=== PATIENT | male | born 1965 | race Caucasian/White ===

== ENCOUNTER 2017-11-21 22:23 | Inpatient (IN) | payer OTHER ==
[~2017-11-21] VITALS: Ht 172.7 cm; Wt 89.1 kg
[2017-11-21 23:57] LABS: BASOPHIL (%) 0.3 % (0-1); BASOPHIL COUNT 0.1 K/uL (0-0.1); EOSINOPHIL (%) 0.2 % (0-5); HEMATOCRIT 42.2 % (38.0-50.0); HEMOGLOBIN 14.3 G/DL (12.5-16.6); IMMATURE GRANULOCYTE (%) 1.6 % (0.0-0.7); LYMPHOCYTE (%) 3.1 % (15-42); LYMPHOCYTE COUNT 0.6 K/uL (1.0-2.8); MCH 30.1 PG (29.0-34.0); MCHC 33.9 G/DL (30.0-36.0); MCV 88.8 FL (86-99); MONOCYTE (%) 5.3 % (3-12); NEUTROPHIL (%) 89.5 % (45-76); NEUTROPHIL COUNT 17.2 K/uL (1.8-6.4); PLATELET COUNT 294 K/uL (156-360); RBC DIS.WIDTH-CV 13.1 % (11.8-14.6); RED BLOOD COUNT 4.75 M/uL (4.00-5.50); WHITE BLOOD COUNT 19.2 K/uL (4.1-10.2)
[2017-11-22 00:12] LABS: ERTH.SED.RATE 102 MM/HR (0-15)
[2017-11-22 00:13] LABS: ALBUMIN 3.4 g/dL (3.2-4.8); CHLORIDE 98 mEq/L (99-109); POTASSIUM 4.6 mEq/L (3.7-5.4); SODIUM 129 mEq/L (136-147)
[2017-11-22 00:15] LABS: GLUCOSE 358 mg/dL (70-99)
[2017-11-22 00:16] LABS: TOTAL PROTEIN 7.3 g/dL (6.4-8.3)
[2017-11-22 00:17] LABS: TOTAL BILIRUBIN 0.4 mg/dL (0.0-1.0)
[2017-11-22 00:19] LABS: ALKALINE PHOSPHATASE 126 IU/L (3-129); CREATININE 0.8 mg/dL (0.6-1.3); GFR ESTIMATE (CALCULATED) > 59 mL/min/ (58.99-99999)
[2017-11-22 00:20] LABS: UREA NITROGEN (BUN) 22 mg/dL (9-23)
[2017-11-22 00:21] LABS: AST (GOT) 15 IU/L (2-34)
[2017-11-22 00:22] LABS: ALT (GPT) 18 IU/L (3-49)
[2017-11-22 00:53] LABS: INTER. NORMALIZED RATIO 1.2
[2017-11-22 00:55] LABS: PTT 24.3 SEC (25-37)
[2017-11-22] MEDS ORDERED: PREDNISONE10 M1 PO (01:08)
[2017-11-22] MEDS ORDERED: GLUCOPHAGE500 MG PO (01:08)
[2017-11-22] MEDS ORDERED: PERCOCET 5/31 TABLET PO (01:08)
[2017-11-22 01:43] LABS: HIGH-SENS C-REACTIVE PROTEIN > 8.00 MG/DL (0.02-0.20)
[2017-11-22 02:19] LABS: APPEARANCE CLEAR ((CLEAR)); BILIRUBIN NEGATIVE; BLOOD NEGATIVE; COLOR YELLOW ((YELLOW)); GLUCOSE (STRIP) >=500; KETONES 80; LEUKOCYTES NEGATIVE; NITRITE NEGATIVE; PROTEIN (STRIP) NEGATIVE; UCUL ADDED? NO; UROBILINOGEN 0.2 MG/DL (0.2-1.0)
[2017-11-22 02:28] LABS: AMPHETAMINE NEGATIVE (500 ng/mL); BENZODIAZEPINES PRESUMPTIVE POSITIVE (150 ng/mL); COCAINE NEGATIVE (150 ng/mL); METHAMPHETAMINE NEGATIVE (500 ng/mL); OPIATES (MORPHINE) NEGATIVE (100 ng/mL); PHENCYCLIDINE NEGATIVE (25 ng/mL); THC CANNABINOIDS NEGATIVE (50 ng/mL); TRICYCLIC ANTIDEPRESSANTS NEGATIVE (300 ng/mL)
[2017-11-22 02:29] LABS: BARBITURATES NEGATIVE (200 ng/mL); BUPRENORPHINE NEGATIVE (10 ng/mL); METHADONE NEGATIVE (200 ng/mL); OXYCODONE PRESUMPTIVE POSITIVE (100 ng/mL); PROPOXYPHENE NEGATIVE (300 ng/mL)
[2017-11-22 03:10] LABS: BENZODIAZEPINES, URINE SCREEN Negative (200 ng/mL)
[2017-11-22 07:34] VITALS: BP 162/92
[2017-11-22 13:32] VITALS: BP 184/97
[2017-11-22 13:44] VITALS: BP 184/97
[2017-11-22 20:05] VITALS: BP 168/92
[2017-11-22 23:56] VITALS: BP 172/82
[2017-11-23 03:24] VITALS: BP 163/87
[2017-11-23 07:43] VITALS: BP 158/97
[2017-11-23 11:21] VITALS: BP 166/95
[2017-11-23 16:23] VITALS: BP 148/93
[2017-11-23 20:15] VITALS: BP 136/87
[2017-11-23 23:58] VITALS: BP 157/101
[2017-11-24 00:03] VITALS: BP 135/63
[2017-11-24 07:45] VITALS: BP 165/89
[2017-11-24 15:55] VITALS: BP 154/84
[2017-11-24 21:00] LABS: CHLORIDE 100 MEQ/L (99-109); POTASSIUM 4.3 MEQ/L (3.7-5.4); SODIUM 130 MEQ/L (136-147)
[2017-11-24 21:07] LABS: CREATININE 0.7 MG/DL (0.6-1.3); GFR ESTIMATE (CALCULATED) > 59 mL/min/ (58.99-99999); GLUCOSE 303 mg/dL (70-99); UREA NITROGEN (BUN) 18 mg/dL (9-23)
[2017-11-24 23:37] VITALS: BP 170/99
[2017-11-25 05:04] LABS: CHLORIDE 102 mEq/L (99-109); POTASSIUM 4.3 mEq/L (3.7-5.4); SODIUM 131 mEq/L (136-147)
[2017-11-25 05:06] LABS: GLUCOSE 223 mg/dL (70-99)
[2017-11-25 05:10] LABS: CREATININE 0.6 mg/dL (0.6-1.3); GFR ESTIMATE (CALCULATED) > 59 mL/min/ (58.99-99999)
[2017-11-25 05:11] LABS: UREA NITROGEN (BUN) 16 mg/dL (9-23)
[2017-11-25 07:52] VITALS: BP 160/93
[2017-11-25 08:13] LABS: THYROTROPIN (TSH) 2.4 MIU/L (0.4-5.5)
[2017-11-25 09:56] LABS: HEMOGLOBIN A1c (GLYCOHEMOGLOB) 13.4 % (Below 5.7)
[2017-11-25 16:11] VITALS: BP 150/96
[2017-11-25 20:59] VITALS: BP 156/84
[2017-11-25 23:46] VITALS: BP 153/96
[2017-11-26 04:24] VITALS: BP 134/87
[2017-11-26 07:57] VITALS: BP 137/97
[2017-11-26 16:01] VITALS: BP 151/89
[2017-11-26] MEDS ORDERED: FLOMAX0.4 MG PO (17:14)
[2017-11-26] MEDS ORDERED: LOPRESSOR25 MG PO (17:15)
[2017-11-26] MEDS ORDERED: LISINOPRIL5 MG PO (17:16)
[2017-11-26] MEDS ORDERED: NEURONTIN300 MG PO ×2 (17:17→17:18)
[2017-11-26] MEDS ORDERED: UNASYN3 GM IM (17:19)
[2017-11-26] MEDS ORDERED: NOVOLOG 10100 UNITS/ SC (17:20)
[2017-11-26] MEDS ORDERED: LEVEMIR100 UNIT/2 SC (17:21)
[2017-11-26] MEDS ORDERED: FLEXERIL10 MG PO (17:22)
[2017-11-26] MEDS ORDERED: DULCOLAX5 MG PO (17:23)
[2017-11-26] MEDS ORDERED: NORCO 10/3251 TABLET PO (17:24)
[2017-11-26] MEDS ORDERED: NORCO 5/3251 TABLET PO (17:25)
== END 2017-11-26 16:38 | DRG 29 ==
LOC: EME 22:23 → 2EASTP 11-22 00:55 → 3EAST 11-22 00:55 → EDOF 11-22 00:55 → ENRESERV 11-22 01:09 → 2EASTP 11-22 07:33 → ENRESERV 11-22 11:02 → 3EAST 11-22 13:32
PROVIDERS: Emergency Medicine; Hospitalist; Neurological Surgery
DX: G06.1 Intraspinal abscess and granuloma (principal); G97.41 Accidental puncture or laceration of dura during a procedure; M54.10 Radiculopathy, site unspecified; E11.65 Type 2 diabetes mellitus with hyperglycemia; B95.4 Other streptococcus as the cause of diseases classified elsewhere; E78.5 Hyperlipidemia, unspecified; G83.4 Cauda equina syndrome; I10 Essential (primary) hypertension; N40.1 Benign prostatic hyperplasia with lower urinary tract symptoms; D72.829 Elevated white blood cell count, unspecified; N13.8 Other obstructive and reflux uropathy; Z86.61 Personal history of infections of the central nervous system; Z68.29 Body mass index [BMI] 29.0-29.9, adult; Z87.891 Personal history of nicotine dependence; Z91.19 Patient's noncompliance with other medical treatment and regimen; Z83.3 Family history of diabetes mellitus
CPT/HCPCS: 72020; 76000; 80048; 80053; 81003; 82436; 82948; 83036; 83605; 83735; 83930; 83935; 84133; 84300; 84443; 84999; 85025; 85610; 85651; 85730; 86141; 87040; 87070; 87075; 87076; 87205; 87801; 94799; 99281; 99285; J0131; J0295; J0330; J0690; J1170; J1815; J1885; J2250; J2270; J2405; J3010; J3370; J3480; J7030; J7050

== ENCOUNTER 2017-11-26 14:22 | Inpatient (IN) | payer OTHER ==
[~2017-11-26 14:22] MED LIST: GLUCOPHAGE500 MG PO; PERCOCET 5/31 TABLET PO; PREDNISONE10 M1 PO
[2017-11-26] MEDS ORDERED: FLOMAX0.4 MG PO (17:14)
[2017-11-26] MEDS ORDERED: LOPRESSOR25 MG PO (17:15)
[2017-11-26] MEDS ORDERED: LISINOPRIL5 MG PO (17:16)
[2017-11-26] MEDS ORDERED: NEURONTIN300 MG PO ×2 (17:17→17:18)
[2017-11-26] MEDS ORDERED: UNASYN3 GM IM (17:19)
[2017-11-26] MEDS ORDERED: NOVOLOG 10100 UNITS/ SC (17:20)
[2017-11-26] MEDS ORDERED: LEVEMIR100 UNIT/2 SC (17:21)
[2017-11-26] MEDS ORDERED: FLEXERIL10 MG PO (17:22)
[2017-11-26] MEDS ORDERED: DULCOLAX5 MG PO (17:23)
[2017-11-26] MEDS ORDERED: NORCO 10/3251 TABLET PO (17:24)
[2017-11-26] MEDS ORDERED: NORCO 5/3251 TABLET PO (17:25)
[2017-11-26 17:59] VITALS: BP 153/92
[2017-11-26 22:53] VITALS: BP 146/84
[2017-11-27 05:59] VITALS: BP 123/76
[2017-11-27 07:05] LABS: HEMATOCRIT 30.3 % (38.0-50.0); HEMOGLOBIN 10.1 G/DL (12.5-16.6); MCH 30.1 PG (29.0-34.0); MCHC 33.3 G/DL (30.0-36.0); MCV 90.2 FL (86-99); RBC DIS.WIDTH-CV 12.9 % (11.8-14.6); RED BLOOD COUNT 3.36 M/uL (4.00-5.50); WHITE BLOOD COUNT 22.3 K/uL (4.1-10.2)
[2017-11-27 07:06] LABS: PLATELET COUNT 509 K/uL (156-360)
[2017-11-27 07:19] LABS: ALBUMIN 2.9 G/DL (3.2-4.8); ALKALINE PHOSPHATASE 79 IU/L (3-129); ALT (GPT) 51 IU/L (3-49); AST (GOT) 28 IU/L (2-34); CHLORIDE 95 MEQ/L (99-109); CREATININE 0.6 MG/DL (0.6-1.3); GFR ESTIMATE (CALCULATED) > 59 mL/min/ (58.99-99999); GLUCOSE 227 mg/dL (70-99); POTASSIUM 4.6 MEQ/L (3.7-5.4); SODIUM 128 MEQ/L (136-147); TOTAL BILIRUBIN 0.5 MG/DL (0.0-1.0); TOTAL PROTEIN 6.2 G/DL (6.4-8.3); UREA NITROGEN (BUN) 19 mg/dL (9-23)
[2017-11-27 15:43] VITALS: BP 115/63
[2017-11-28 05:08] VITALS: BP 119/77
[2017-11-28 05:58] LABS: BASOPHIL (%) 0.4 % (0-1); BASOPHIL COUNT 0.1 K/uL (0-0.1); EOSINOPHIL (%) 1.4 % (0-5); EOSINOPHIL COUNT 0.3 K/uL (0-0.3); HEMATOCRIT 26.6 % (38.0-50.0); HEMOGLOBIN 8.9 G/DL (12.5-16.6); IMMATURE GRANULOCYTE (%) 4.4 % (0.0-0.7); LYMPHOCYTE (%) 11.6 % (15-42); LYMPHOCYTE COUNT 2.1 K/uL (1.0-2.8); MCH 30.3 PG (29.0-34.0); MCHC 33.5 G/DL (30.0-36.0); MCV 90.5 FL (86-99); MONOCYTE (%) 8.6 % (3-12); MONOCYTE COUNT 1.6 K/uL (0-0.8); NEUTROPHIL (%) 73.6 % (45-76); NEUTROPHIL COUNT 13.5 K/uL (1.8-6.4); PLATELET COUNT 477 K/uL (156-360); RBC DIS.WIDTH-CV 13.2 % (11.8-14.6); RED BLOOD COUNT 2.94 M/uL (4.00-5.50); WHITE BLOOD COUNT 18.3 K/uL (4.1-10.2)
[2017-11-28 06:29] LABS: C-REACTIVE PROTEIN 68.8 MG/L (0-10); CHLORIDE 97 MEQ/L (99-109); CREATININE 0.7 MG/DL (0.6-1.3); GFR ESTIMATE (CALCULATED) > 59 mL/min/ (58.99-99999); GLUCOSE 149 mg/dL (70-99); PHOSPHORUS 3.5 mg/dL (2.5-4.9); SODIUM 133 MEQ/L (136-147); UREA NITROGEN (BUN) 17 mg/dL (9-23)
[2017-11-28 06:44] LABS: URIC ACID 2.7 mg/dL (3.1-9.2)
[2017-11-28 08:12] LABS: THYROTROPIN (TSH) 1.7 MIU/L (0.4-5.5)
[2017-11-28 08:34] LABS: ERTH.SED.RATE 97 MM/HR (0-15)
[2017-11-28 11:31] LABS: APPEARANCE CLEAR ((CLEAR)); BILIRUBIN NEGATIVE; BLOOD NEGATIVE; COLOR YELLOW ((YELLOW)); GLUCOSE (STRIP) >=500; KETONES NEGATIVE; LEUKOCYTES NEGATIVE; NITRITE NEGATIVE; PROTEIN (STRIP) NEGATIVE; SPECIFIC GRAVITY 1.021 (1.000-1.030); UROBILINOGEN 0.2 MG/DL (0.2-1.0)
[2017-11-28 12:02] LABS: UR CREATININE CONCENTRATION 89.9 MG/DL
[2017-11-28 16:29] VITALS: BP 122/78
[2017-11-29 06:36] VITALS: BP 131/84
[2017-11-29 12:47] LABS: CHLORIDE 99 MEQ/L (99-109); CREATININE 0.6 MG/DL (0.6-1.3); GFR ESTIMATE (CALCULATED) > 59 mL/min/ (58.99-99999); GLUCOSE 162 mg/dL (70-99); POTASSIUM 4.5 MEQ/L (3.7-5.4); SODIUM 134 MEQ/L (136-147); UREA NITROGEN (BUN) 16 mg/dL (9-23)
[2017-11-29 15:17] VITALS: BP 120/80
[2017-11-30 05:40] VITALS: BP 135/85
[2017-11-30 16:28] VITALS: BP 127/80
[2017-11-30 20:10] VITALS: BP 133/81
[2017-12-01 05:33] VITALS: BP 131/81
[2017-12-01 09:44] LABS: BASOPHIL (%) 0.8 % (0-1); BASOPHIL COUNT 0.1 K/uL (0-0.1); EOSINOPHIL (%) 0.9 % (0-5); EOSINOPHIL COUNT 0.1 K/uL (0-0.3); HEMATOCRIT 26.6 % (38.0-50.0); HEMOGLOBIN 8.6 G/DL (12.5-16.6); IMMATURE GRANULOCYTE (%) 1.7 % (0.0-0.7); LYMPHOCYTE (%) 11.1 % (15-42); LYMPHOCYTE COUNT 1.6 K/uL (1.0-2.8); MCH 29.7 PG (29.0-34.0); MCHC 32.3 G/DL (30.0-36.0); MCV 91.7 FL (86-99); MONOCYTE (%) 6.2 % (3-12); MONOCYTE COUNT 0.9 K/uL (0-0.8); NEUTROPHIL (%) 79.3 % (45-76); NEUTROPHIL COUNT 11.4 K/uL (1.8-6.4); PLATELET COUNT 471 K/uL (156-360); RBC DIS.WIDTH-CV 13.4 % (11.8-14.6); RBC DIS.WIDTH-SD 44.5 % (39-53); WHITE BLOOD COUNT 14.4 K/uL (4.1-10.2)
[2017-12-01 10:19] LABS: ERTH.SED.RATE 52 MM/HR (0-15)
[2017-12-01 12:35] LABS: ALKALINE PHOSPHATASE 92 IU/L (3-129); ALT (GPT) 70 IU/L (3-49); AST (GOT) 36 IU/L (2-34); CHLORIDE 92 MEQ/L (99-109); CREATININE 0.9 MG/DL (0.6-1.3); GFR ESTIMATE (CALCULATED) > 59 mL/min/ (58.99-99999); POTASSIUM 4.2 MEQ/L (3.7-5.4); TOTAL BILIRUBIN 0.5 MG/DL (0.0-1.0); TOTAL PROTEIN 6.5 G/DL (6.4-8.3); UREA NITROGEN (BUN) 15 mg/dL (9-23)
[2017-12-01 12:37] LABS: GLUCOSE 263 mg/dL (70-99)
[2017-12-01 12:38] LABS: SODIUM 127 MEQ/L (136-147)
[2017-12-01 13:26] LABS: C-REACTIVE PROTEIN 81.7 MG/L (0-10)
[2017-12-01 15:15] VITALS: BP 116/67
[2017-12-02 06:04] VITALS: BP 114/76
[2017-12-02 15:43] VITALS: BP 123/79
[2017-12-03 05:01] VITALS: BP 122/80
[2017-12-03 06:13] LABS: CHLORIDE 99 MEQ/L (99-109); CREATININE 0.6 MG/DL (0.6-1.3); GFR ESTIMATE (CALCULATED) > 59 mL/min/ (58.99-99999); POTASSIUM 4.7 MEQ/L (3.7-5.4); UREA NITROGEN (BUN) 14 mg/dL (9-23)
[2017-12-03 06:14] LABS: GLUCOSE 117 mg/dL (70-99); SODIUM 134 MEQ/L (136-147)
[2017-12-03 15:00] VITALS: BP 120/75
[2017-12-04 05:24] VITALS: BP 120/79
[2017-12-04 15:00] VITALS: BP 129/81
[2017-12-05 05:03] LABS: BASOPHIL (%) 0.4 % (0-1); BASOPHIL COUNT 0.1 K/uL (0-0.1); EOSINOPHIL (%) 2.1 % (0-5); EOSINOPHIL COUNT 0.3 K/uL (0-0.3); HEMATOCRIT 27.5 % (38.0-50.0); HEMOGLOBIN 8.8 G/DL (12.5-16.6); IMMATURE GRANULOCYTE (%) 0.9 % (0.0-0.7); LYMPHOCYTE (%) 11.6 % (15-42); LYMPHOCYTE COUNT 1.6 K/uL (1.0-2.8); MCH 29.1 PG (29.0-34.0); MCV 91.1 FL (86-99); MONOCYTE (%) 6.7 % (3-12); MONOCYTE COUNT 0.9 K/uL (0-0.8); NEUTROPHIL (%) 78.3 % (45-76); NEUTROPHIL COUNT 10.6 K/uL (1.8-6.4); PLATELET COUNT 405 K/uL (156-360); RBC DIS.WIDTH-CV 13.5 % (11.8-14.6); RBC DIS.WIDTH-SD 44.5 % (39-53); RED BLOOD COUNT 3.02 M/uL (4.00-5.50); WHITE BLOOD COUNT 13.6 K/uL (4.1-10.2)
[2017-12-05 05:37] LABS: ALBUMIN 3.1 G/DL (3.2-4.8); ALKALINE PHOSPHATASE 77 IU/L (3-129); ALT (GPT) 51 IU/L (3-49); AST (GOT) 20 IU/L (2-34); CHLORIDE 100 MEQ/L (99-109); CREATININE 0.7 MG/DL (0.6-1.3); GFR ESTIMATE (CALCULATED) > 59 mL/min/ (58.99-99999); GLUCOSE 101 mg/dL (70-99); POTASSIUM 4.5 MEQ/L (3.7-5.4); SODIUM 136 MEQ/L (136-147); TOTAL BILIRUBIN 0.4 MG/DL (0.0-1.0); TOTAL PROTEIN 6.3 G/DL (6.4-8.3); UREA NITROGEN (BUN) 15 mg/dL (9-23)
[2017-12-05 05:55] VITALS: BP 137/74
[2017-12-05 15:22] VITALS: BP 117/68
[2017-12-05 15:23] VITALS: BP 129/76
[2017-12-05 20:23] VITALS: BP 122/71
[2017-12-06 05:36] VITALS: BP 118/79
[2017-12-06 16:30] VITALS: BP 134/86
[2017-12-07 06:20] VITALS: BP 136/77
[2017-12-07] MEDS ORDERED: LOPRESSOR25 MG PO (13:17)
[2017-12-07] MEDS ORDERED: FLOMAX0.4 MG PO (13:17)
[2017-12-07] MEDS ORDERED: NEURONTIN600 MG PO (13:17)
[2017-12-07] MEDS ORDERED: NORCO 5/3251 TABLET PO (13:17)
[2017-12-07] MEDS ORDERED: FLEXERIL10 MG PO (13:17)
[2017-12-07] MEDS ORDERED: POLYETHYLENE GL17 GM PO (13:20)
[2017-12-07] MEDS ORDERED: LEVEMIR100 UNIT/2 SC (13:20)
[2017-12-07] MEDS ORDERED: SODIUM CHLORIDE1 G1 PO (13:20)
[2017-12-07] MEDS ORDERED: GLUCOPHAGE500 MG PO (13:20)
== END 2017-12-07 14:20 | disposition home health service (06) | DRG 945 ==
LOC: 3WEST 14:22 → ENPENDDIS 12-08
PROVIDERS: Internal Medicine Nephrology; Physical Medicine & Rehabilitation Pain Medicine; Psychiatry & Neurology Neurology
PROC: F07M0ZZ Range of Motion and Joint Mobility Treatment of Musculoskeletal System - Whole Body (ICD-10-PCS; principal; 2017-11-26)
DX: R53.1 Weakness (principal); R26.2 Difficulty in walking, not elsewhere classified; G89.18 Other acute postprocedural pain; M54.5 Low back pain; R10.2 Pelvic and perineal pain; A41.9 Sepsis, unspecified organism; G06.1 Intraspinal abscess and granuloma; G83.4 Cauda equina syndrome; I10 Essential (primary) hypertension; E11.65 Type 2 diabetes mellitus with hyperglycemia; E22.2 Syndrome of inappropriate secretion of antidiuretic hormone; T40.2X5A Adverse effect of other opioids, initial encounter; T46.4X5A Adverse effect of angiotensin-converting-enzyme inhibitors, initial encounter; E78.1 Pure hyperglyceridemia; E78.5 Hyperlipidemia, unspecified; F17.200 Nicotine dependence, unspecified, uncomplicated; K64.8 Other hemorrhoids; N40.1 Benign prostatic hyperplasia with lower urinary tract symptoms; Z91.14 Patient's other noncompliance with medication regimen
CPT/HCPCS: 72197; 78315; 80048; 80053; 81003; 82533 91; 82570; 82948; 83735; 83935; 84100; 84156; 84300; 84443; 84550; 85025; 85027; 85651; 85652; 86140; 97110 GO; 97530 GP; A9503; J0295; J1815; J7050